=== PATIENT | male | born 1945 | race Hispanic/Latino ===

== ENCOUNTER → 2017-10-22 | Outpatient (CLI) | payer OTHER ==
[~2017-10-22] MED LIST: ASPIRIN EC81 MG PO; ATORVASTATIN CA10 MG PO; GLIMEPIRIDE1 MG PO; HYDROCODON-ACE1 EA11 PO; LANTUS100 UNITS/ SQ; LISINOPRIL5 MG PO; METFORMIN HCL500 MG PO; REGADENOSON 0.4 MG/5 ML SYR IV ONE
--- NOTE | 2017-10-22 13:32 | Cardiology Report ---
DATE OF STUDY: October 22, 2017 LEXISCAN STRESS TEST INDICATION: Chest pain. DESCRIPTION OF PROCEDURE: After informed consent, patient was brought to the stress lab. He was given 11 mCi of technetium 99 Myoview intravenously, and myocardial perfusion SPECT images were obtained in the horizontal long-axis, short-axis and vertical long-axis views. Subsequently, patient was 0.4 mg Lexiscan over 10 seconds. Patient was given 33 mCi of technetium 99 Myoview intravenously, and myocardial perfusion SPECT images were obtained in the horizontal long-axis, short-axis and vertical long-axis views. Gating images were also obtained. Patient tolerated the procedure without any complications. REPORT: Baseline EKG shows sinus rhythm at 69 beats per minute, normal axis, normal intervals, nonspecific ST-T changes. PARAMETERS 1. Resting heart rate is 67 beats per minute. 2. Maximum heart rate is 103 beats per minute. 3. Resting blood pressure is 135/94 mmHg. 4. Maximum blood pressure 148/107 mmHg. REASON FOR TERMINATION: Endpoint attained. INTERPRETATION 1. Negative for chest pain. 2. Negative for arrhythmias. 3. Patient became hypotensive after Lexiscan infusion. 4. No significant ST-T changes seen during Lexiscan infusion compared to baseline. 5. Analysis of SPECT images reveals uniform radioisotope uptake in all segments of the myocardium without any significant perfusion defects. CONCLUSIONS 1. No evidence of significant ischemia or infarction on this study. 2. Mild hypokinesis of the left ventricle is noted. 3. Overall ejection fraction is 44%. Job#: [id number] EV
== END ==
LOC: NM 08:04
DX: I25.810 Atherosclerosis of coronary artery bypass graft(s) without angina pectoris (principal)
CPT/HCPCS: 78452; 93017; A9502

== ENCOUNTER → 2019-04-23 | Outpatient (CLI) | payer MEDICARE ==
[~2019-04-23] MED LIST changes: +IOPAMIDOL 370 MG/ML 200 ML INFUS..BTL INJ ONE; -REGADENOSON 0.4 MG/5 ML SYR IV ONE; +SODIUM CHLORIDE 0.9% 100 ML 100 ML ONE
[2019-04-23 09:01] LABS: CREATININE, SERUM 1.18 mg/dL (0.72-1.25)
--- NOTE | 2019-04-24 14:49 | Diagnostic Imaging Report ---
History: Left-sided blockage Comparison studies:MRA neck 03/28/2014 Technique: Axial images were obtained from the thoracic inlet. 3-D reconstructions and maximum intensity projection reformats were performed. Coronal and sagittal images reconstructed from the axial data. Intravenous contrast: 100 cc of Omnipaque 300. Dose modulation, iterative reconstruction, and/or weight based adjustment of the mA/kV was utilized to reduce the radiation dose to as low as reasonably achievable. Findings: Percentage of stenosis will be based on the NASCET criteria. Aortic arch and major vessels: Patent. Atherosclerotic calcifications of the stenosis. Calcified and noncalcified atherosclerotic plaque of the proximal left subclavian artery results in 40-60% stenosis. Calcified and non-calcified plaque at the subclavian artery distal to the left vertebral artery takeoff results in more than 90% stenosis/near occlusion with distal reconstitution. Common carotid arteries: Patent. Noncalcified plaque at the distal right common carotid artery with less than 30% stenosis Noncalcified plaque at the proximal and distal left common carotid artery with less than 30% stenosis. Noncalcified plaque at the proximal left external carotid artery results in more than 90% stenosis. Right internal carotid artery: Patent. Diminutive cervical segment. Calcified plaque at the carotid siphon and ophthalmic segment with less than 30% stenosis. Left internal carotid artery: Patent. Calcified plaque at the bulb with less than 30% stenosis. Calcified plaque at the carotid siphon and ophthalmic segment with less than 30% stenosis. Right vertebral artery: Patent and dominant. Calcified plaque at the origin with 40-60% stenosis.. Left vertebral artery: Patent. Calcified plaque at the origin results in less than 30% stenosis. No dentition. 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 High-grade stenosis stenosis of the left external carotid artery with distal reconstitution. Other scattered atherosclerotic disease of the neck arteries without hemodynamically significant stenosis as described above. Signed by: DR Theodore Hurt M.D. on 04/24/2019 2:46 PM
== END ==
LOC: CT 08:14
PROVIDERS: ATTEND Internal Medicine Critical Care Medicine
DX: I65.21 Occlusion and stenosis of right carotid artery (principal); G45.8 Other transient cerebral ischemic attacks and related syndromes
CPT/HCPCS: 36415; 70498; 82565; 84520; Q9967

== ENCOUNTER → 2020-04-17 | Day surgery (SDC) | payer MEDICARE, OTHER ==
[2020-04-12 10:07] LABS: BASOPHILS % 0.4 % (0.0-1.0); EOSINOPHILS # (AUTO) 0.3 (0.0-0.4); EOSINOPHILS % 3.6 % (0.0-6.0); HEMATOCRIT 39.9 % (38.2-49.6); HEMOGLOBIN 12.5 g/dL (14.0-18.0); LYMPHOCYTES # (AUTO) 3.3 (1.0-3.2); LYMPHOCYTES % 34.2 % (18.0-39.1); MEAN CORPUSCULAR HEMOGLOBIN 28.2 pg (28-32); MEAN CORPUSCULAR HGB CONC 31.3 g/dL (31-35); MEAN CORPUSCULAR VOLUME 90.1 fL (81-99); MONOCYTES # (AUTO) 0.7 (0.2-0.8); MONOCYTES % 7.1 % (4.4-11.3); NEUTROPHILS # (AUTO) 5.2 (2.1-6.9); NEUTROPHILS % 54.4 % (38.7-80.0); PLATELET COUNT 277 x10e3/uL (140-360); RED BLOOD COUNT 4.43 x10e6/uL (4.3-5.7); RED CELL DISTRIBUTION WIDTH 14.6 % (11.7-14.4)
[2020-04-12 10:32] LABS: ALANINE AMINOTRANSFERASE 13 IU/L (0-55); ALBUMIN/GLOBULIN RATIO 1.1 (0.8-2.0); ALKALINE PHOSPHATASE 80 IU/L (40-150); BLOOD UREA NITROGEN 15 mg/dL (7-26); BUN/CREATININE RATIO 14 (6-25); CALCIUM 10.3 mg/dL (8.4-10.2); CARBON DIOXIDE 28 mmol/L (22-29); CHLORIDE 105 mmol/L (98-107); CHOL/HDL RATIO 3.4 (3.9-4.7); CHOLESTEROL 131 MD/DL (0-199); CREATININE, SERUM 1.08 mg/dL (0.72-1.25); EST GLOMERULAR FILTRATION RATE > 60 ML/MIN (60-); GLUCOSE 116 mg/dL (74-118); HDL CHOLESTEROL 39 MG/DL (40-60); LDL CHOLESTEROL 77 MG/DL (60-130); SODIUM 141 mmol/L (136-145); TRIGLYCERIDES 75 MG/DL (0-149)
--- NOTE | 2020-04-12 10:37 | Diagnostic Imaging Report ---
EXAMINATION: CHEST 2 VIEWS INDICATION: ^PRE-OP COMPARISON: None FINDINGS: TUBES and LINES: Sternal wires. LUNGS: Lungs are well inflated. Lungs are clear. There is no evidence of pneumonia or pulmonary edema. PLEURA: No pleural effusion or pneumothorax. HEART AND MEDIASTINUM: The cardiomediastinal silhouette is unremarkable. BONES AND SOFT TISSUES: No acute osseous lesion. Soft tissues are unremarkable. UPPER ABDOMEN: No free air under the diaphragm. IMPRESSION: No acute thoracic abnormality. Signed by: Dr. Hieu Landa M.D. on 04/12/2020 10:33 AM
[2020-04-12 10:54] LABS: INR 0.96; PARTIAL THROMBOPLASTIN TIME 28.1 seconds (23.8-35.5); PROTHROMBIN TIME 13.3 seconds (11.9-14.5)
[~2020-04-17] VITALS: Ht 165.1 cm; Wt 64.4 kg
[2020-04-17] VITALS (16 sets, daily range): BP systolic 144–171; BP diastolic 64–86
[~2020-04-17] MED LIST changes: +ASPIRIN 325 MG TAB ONE; +BIVALRIUDIN 250 MG/VIAL VIAL IV ONE; +CLOPIDOGREL BISULFATE 75 MG TAB ONE; +FENTANYL CITRATE/PF 100MCG/2 ML INJ ONE; +HEPARIN SOD (PORCINE) 1000 UNIT/ML 30ML ONE; +HEPARIN SOD/SOD CHLORIDE 2,000 ML ONE; +LIDOCAINE HCL 2% LOCAL 20 ML VIAL ONE; +MIDAZOLAM HCL 2 MG/2 ML VIAL ONE; +NITROGLYCERIN/D5W 200 MCG/ML 250 ML ONE; +NOVOLOG100 UNIT/1 SC; -SODIUM CHLORIDE 0.9% 100 ML 100 ML ONE; +SODIUM CHLORIDE 0.9% 1000ML 1,000 ML ONE; +SODIUM CHLORIDE 0.9% 50ML 50 ML ONE; +TRESIBA100 UNIT/1 SC
--- NOTE | 2020-04-17 09:47 | Operative Report ---
DATE OF PROCEDURE: 04/17/2020 SURGEON: Bashir Navarro MD PROCEDURE: 1. Intracoronary stent placement and the saphenous vein graft to the obtuse marginal branch of the circumflex artery. 2. Left heart catheterization with grafts. COMPLICATIONS: None. PREOPERATIVE DIAGNOSES: 1. Angina. 2. Coronary artery disease. POSTOPERATIVE DIAGNOSES: 1. Angina. 2. Coronary artery disease. ANESTHESIA: Conscious sedation. TECHNIQUE: The right groin was draped and prepped in the usual fashion. The area was anesthetized with lidocaine. Standard Seldinger technique was used to place a 6-[place] sheath into the right femoral artery without difficulty. A JL4 catheter was used to selectively engage the left coronary artery. A 3DRC catheter was used to selectively engage the right coronary artery and the saphenous vein graft to the right coronary artery. An internal mammary artery catheter was used to selectively engage the left internal mammary artery graft. A pigtail catheter was used to perform a left ventriculogram. Attention was then turned to the 95% stenosis immediately distal to the anastomosis of the saphenous vein graft to the obtuse marginal branch of the circumflex artery. The patient was bolused with Angiomax and started on an Angiomax drip. The patient was given 600 mg of Plavix. A 3DRC guide was used to selectively engage the saphenous vein graft to the obtuse marginal branch of the circumflex artery. The choice PT wire was used to cross the area of 95% stenosis of the anastomosis. The area was dilated with 2.5 x 12 mm balloon. A 2.5 mm x 12 mm stent was then deployed without complication. A Mynx device was used for closure. RESULTS: 1. The [place] left main trunk appeared to be occluded. 2. The [place] left anterior descending artery was occluded proximally. 3. The [place] AV circumflex artery was occluded proximally. 4. The right coronary artery was a large dominant vessel with about 30% stenosis at the ostium. 5. The saphenous vein graft to the obtuse marginal branch of the circumflex artery was widely patent. There was 95% stenosis immediately after the anastomosis of the saphenous vein graft to the obtuse marginal branch of the circumflex artery. 6. There was a sequential left internal mammary artery graft to the left anterior descending artery and diagonal artery, which was widely patent. 7. The left ventriculogram demonstrated moderate left ventricular dysfunction with an ejection fraction of 40%. CONCLUSION: Successful stent placement in the saphenous vein graft to the obtuse marginal branch of the circumflex artery. MD ELSA Owen/MODL /[id number]
== END | disposition home or self-care (01) ==
LOC: CATH LAB 06:09
PROVIDERS: ATTEND Internal Medicine Cardiovascular Disease
DX: I25.709 Atherosclerosis of coronary artery bypass graft(s), unspecified, with unspecified angina pectoris (principal); G45.8 Other transient cerebral ischemic attacks and related syndromes; I10 Essential (primary) hypertension; E11.9 Type 2 diabetes mellitus without complications; Z88.8 Allergy status to other drugs, medicaments and biological substances; Z91.041 Radiographic dye allergy status; Z01.810 Encounter for preprocedural cardiovascular examination; Z01.812 Encounter for preprocedural laboratory examination; Z01.818 Encounter for other preprocedural examination; Z11.59 Encounter for screening for other viral diseases; Z79.84 Long term (current) use of oral hypoglycemic drugs; Z79.02 Long term (current) use of antithrombotics/antiplatelets; Z79.82 Long term (current) use of aspirin; Z79.4 Long term (current) use of insulin; Z95.1 Presence of aortocoronary bypass graft; Z82.49 Family history of ischemic heart disease and other diseases of the circulatory system
CPT/HCPCS: 93459; C9604; 36415; 71046; 80053; 80061; 85025; 85610; 85730; 92928; 93005; 99152; 99153; C1725; C1760; C1769; C1874; J0583; J1644; J2001; J2250; J3010; J7030; Q9967; U0002

== ENCOUNTER 2021-11-02 09:55 | Inpatient (IN) | payer MEDICARE ==
[2021-10-30 11:12] LABS: BASOPHILS % 0.3 % (0.0-1.0); EOSINOPHILS # (AUTO) 0.2 (0.0-0.4); EOSINOPHILS % 3.4 % (0.0-6.0); HEMATOCRIT 36.3 % (38.2-49.6); HEMOGLOBIN 11.6 g/dL (14.0-18.0); LYMPHOCYTES # (AUTO) 2.6 (1.0-3.2); LYMPHOCYTES % 39.3 % (18.0-39.1); MEAN CORPUSCULAR HEMOGLOBIN 29.5 pg (28-32); MEAN CORPUSCULAR VOLUME 92.4 fL (81-99); MONOCYTES # (AUTO) 0.4 (0.2-0.8); MONOCYTES % 6.8 % (4.4-11.3); NEUTROPHILS # (AUTO) 3.3 (2.1-6.9); PLATELET COUNT 298 x10e3/uL (140-360); RED BLOOD COUNT 3.93 x10e6/uL (4.3-5.7); RED CELL DISTRIBUTION WIDTH 13.9 % (11.7-14.4)
[2021-10-30 11:32] LABS: INR 0.97; PROTHROMBIN TIME 13.8 seconds (11.9-14.5)
[2021-10-30 11:33] LABS: PARTIAL THROMBOPLASTIN TIME 29.9 seconds (23.8-35.5)
[2021-10-30 11:39] LABS: ANION GAP 12.5 mmol/L (8-16); CREATININE, SERUM 1.05 mg/dL (0.72-1.25); POTASSIUM 4.5 mmol/L (3.5-5.1)
[~2021-11-02] VITALS: Ht 165.1 cm; Wt 64.9 kg
[2021-11-02] VITALS (10 sets, daily range): BP systolic 116–163; BP diastolic 49–68
[~2021-11-02 09:55] MED LIST changes: -ASPIRIN 325 MG TAB ONE; -BIVALRIUDIN 250 MG/VIAL VIAL IV ONE; -CLOPIDOGREL BISULFATE 75 MG TAB ONE; -FENTANYL CITRATE/PF 100MCG/2 ML INJ ONE; +FEROSUL325 MG PO; +FLOMAX0.4 MG PO; -HEPARIN SOD (PORCINE) 1000 UNIT/ML 30ML ONE; +HEPARIN SOD/SOD CHLORIDE 1,000 ML ONE; -HEPARIN SOD/SOD CHLORIDE 2,000 ML ONE; -IOPAMIDOL 370 MG/ML 200 ML INFUS..BTL INJ ONE; -LIDOCAINE HCL 2% LOCAL 20 ML VIAL ONE; -MIDAZOLAM HCL 2 MG/2 ML VIAL ONE; +MIDODRINE HCL2.5 MG PO; -NITROGLYCERIN/D5W 200 MCG/ML 250 ML ONE; -SODIUM CHLORIDE 0.9% 1000ML 1,000 ML ONE; -SODIUM CHLORIDE 0.9% 50ML 50 ML ONE
[2021-11-02] MEDS ORDERED: DEXTROSE 5% 250ML 250 ML IV ONE (10:44)
[2021-11-02] MEDS ORDERED: PREVAGEN PO (11:13)
[2021-11-02] MEDS ORDERED: HEPARIN SOD (PORCINE) 1000 UNIT/ML 30ML ONE (12:33)
[2021-11-02] MEDS ORDERED: SODIUM CHLORIDE 0.9% 500ML 500 ML ONE (12:33)
[2021-11-02] MEDS ORDERED: LIDOCAINE HCL 1% 2 ML AMP ONE (12:33)
[2021-11-02] MEDS ORDERED: PROTAMINE SULFATE 10 MG/ML 5 ML VIAL ONE (12:33)
[2021-11-02] MEDS ORDERED: THROMBIN FOR SOLN 5,000 UNIT VIAL ONE (12:34)
[2021-11-02] MEDS ORDERED: MUPIROCIN 2% OINT 22 GM TUBE ONE (12:34)
[2021-11-02] MEDS ORDERED: SODIUM CHLORIDE 0.9% 50ML 50 ML ONE (12:38)
[2021-11-02] MEDS ORDERED: SEVOFLURANE INHAL SOLN 250 ML PEN BTL ONE (12:58)
[2021-11-02] MEDS ORDERED: ONDANSETRON HCL INJ 2MG/ML 2ML 2 MG/ML VIAL ONE ×2 (12:58→15:44)
[2021-11-02] MEDS ORDERED: ROCURONIUM BROMIDE 10 MG/ML 5ML VIAL IV ONE (12:58)
[2021-11-02] MEDS ORDERED: PHENYLEPHRINE HCL 1% 10 MG/ML VIAL ONE (12:58)
[2021-11-02] MEDS ORDERED: POVIDONE IODINE 0.05% 0.05 % ML PO ONE (12:58)
[2021-11-02] MEDS ORDERED: LIDOCAINE HCL 2% JELLY 5 ML TUBE ONE (12:58)
[2021-11-02] MEDS ORDERED: PROPOFOL IV EMULSION 10 MG/ML 20 ML VIAL ONE (12:58)
[2021-11-02] MEDS ORDERED: FENTANYL CITRATE/PF 100MCG/2 ML INJ ONE ×2 (13:04→15:32)
[2021-11-02] MEDS ORDERED: ACETAMINOPHEN 1000 MG/100 ML 100 ML IV ONE (14:38)
[2021-11-02 15:50] LABS: BASOPHILS % 0.2 % (0.0-1.0); EOSINOPHILS # (AUTO) 0.3 (0.0-0.4); EOSINOPHILS % 2.6 % (0.0-6.0); HEMATOCRIT 32.2 % (38.2-49.6); HEMOGLOBIN 10.5 g/dL (14.0-18.0); LYMPHOCYTES # (AUTO) 4.2 (1.0-3.2); MEAN CORPUSCULAR HEMOGLOBIN 29.4 pg (28-32); MEAN CORPUSCULAR HGB CONC 32.6 g/dL (31-35); MEAN CORPUSCULAR VOLUME 90.2 fL (81-99); MONOCYTES # (AUTO) 0.9 (0.2-0.8); MONOCYTES % 7.5 % (4.4-11.3); NEUTROPHILS # (AUTO) 6.6 (2.1-6.9); NEUTROPHILS % 54.4 % (38.7-80.0); PLATELET COUNT 289 x10e3/uL (140-360); RED BLOOD COUNT 3.57 x10e6/uL (4.3-5.7); RED CELL DISTRIBUTION WIDTH 14.1 % (11.7-14.4)
[2021-11-02 16:14] LABS: ALBUMIN 3.2 g/dL (3.5-5.0); ALBUMIN/GLOBULIN RATIO 1.1 (0.8-2.0); ANION GAP 9.9 mmol/L (8-16); CALCIUM 8.9 mg/dL (8.4-10.2); CREATININE, SERUM 0.86 mg/dL (0.72-1.25); POTASSIUM 3.9 mmol/L (3.5-5.1)
[2021-11-02] MEDS ORDERED: HYDROCODONE/APAP 5MG-325MG TAB PO PRN ×2 (17:30)
[2021-11-02] MEDS ORDERED: Morphine 2mg Syringe 2 MG/ML SYR IV PRN (17:30)
[2021-11-02] MEDS ORDERED: ONDANSETRON HCL 4 MG ORAL DISINTEGRATING TAB PO PRN (17:30)
[2021-11-02] MEDS ORDERED: Morphine 4mg Syringe 4 MG/ML INJ IV PRN (17:30)
[2021-11-02] MEDS ORDERED: DEXTROSE 50% SYRINGE 50 ML IV PRN (17:45)
[2021-11-02] MEDS ORDERED: LABETALOL HCL 5 MG/ML 20ML VIAL IV PRN (17:45)
[2021-11-02] MEDS: INSULIN REGULAR, HUMAN 100 UNIT/1 ML SQ SCH (18:00)
[2021-11-02] MEDS: SODIUM CHLORIDE 0.9% 1000ML 1,000 ML IV SCH (18:30)
[2021-11-02 19:26] LABS: BASOPHILS % 0.3 % (0.0-1.0); EOSINOPHILS % 0.3 % (0.0-6.0); HEMOGLOBIN 10.9 g/dL (14.0-18.0); LYMPHOCYTES # (AUTO) 1.5 (1.0-3.2); LYMPHOCYTES % 11.1 % (18.0-39.1); MEAN CORPUSCULAR HEMOGLOBIN 29.6 pg (28-32); MEAN CORPUSCULAR VOLUME 89.7 fL (81-99); MONOCYTES # (AUTO) 0.5 (0.2-0.8); MONOCYTES % 3.9 % (4.4-11.3); NEUTROPHILS # (AUTO) 11.3 (2.1-6.9); NEUTROPHILS % 84.3 % (38.7-80.0); PLATELET COUNT 287 x10e3/uL (140-360); RED BLOOD COUNT 3.68 x10e6/uL (4.3-5.7)
[2021-11-02 19:54] LABS: ANION GAP 12.4 mmol/L (8-16); CALCIUM 9.2 mg/dL (8.4-10.2); CREATININE, SERUM 0.85 mg/dL (0.72-1.25); POTASSIUM 4.4 mmol/L (3.5-5.1)
[2021-11-02] MEDS ORDERED: Cefazolin 1 GM in SODIUM CHLORIDE 0.9% 50ML 50 ML IV ONE (22:00)
[2021-11-03] VITALS (23 sets, daily range): BP systolic 112–172; BP diastolic 51–80
[2021-11-03] MEDS: SODIUM CHLORIDE 0.9% 1000ML 1,000 ML IV SCH (04:31)
[2021-11-03] MEDS: INSULIN REGULAR, HUMAN 100 UNIT/1 ML SQ SCH ×5 (06:00→23:56)
[2021-11-03 06:07] LABS: BASOPHILS % 0.4 % (0.0-1.0); EOSINOPHILS # (AUTO) 0.2 (0.0-0.4); EOSINOPHILS % 1.6 % (0.0-6.0); HEMATOCRIT 33.7 % (38.2-49.6); LYMPHOCYTES # (AUTO) 2.9 (1.0-3.2); MEAN CORPUSCULAR HEMOGLOBIN 29.4 pg (28-32); MEAN CORPUSCULAR HGB CONC 32.6 g/dL (31-35); MEAN CORPUSCULAR VOLUME 90.1 fL (81-99); MONOCYTES # (AUTO) 0.8 (0.2-0.8); MONOCYTES % 8.6 % (4.4-11.3); NEUTROPHILS # (AUTO) 5.7 (2.1-6.9); NEUTROPHILS % 59.1 % (38.7-80.0); PLATELET COUNT 322 x10e3/uL (140-360); RED BLOOD COUNT 3.74 x10e6/uL (4.3-5.7)
[2021-11-03 06:26] LABS: ALBUMIN 3.3 g/dL (3.5-5.0); ANION GAP 12.2 mmol/L (8-16); CREATININE, SERUM 0.99 mg/dL (0.72-1.25); POTASSIUM 4.2 mmol/L (3.5-5.1)
[2021-11-03] MEDS: ENOXAPARIN SOD INJ 40 MG/0.4 ML SYR SC SCH (08:31)
[2021-11-03] MEDS ORDERED: SODIUM CHLORIDE FLUSH 10 ML SYR INJ PRN (09:00)
[2021-11-03] MEDS ORDERED: DIPHENHYDRAMINE HCL INJ 50 MG/ML VIAL IV ONE (20:30)
[2021-11-04] VITALS (17 sets, daily range): BP systolic 80–154; BP diastolic 43–92
[2021-11-04] MEDS ORDERED: AMIODARONE HCL 150 MG/100 ML BAG IV ONE (03:45)
[2021-11-04] MEDS ORDERED: AMIODARONE 900MG 900 MG in Premix Bag 1 BAG IV SCH (03:45)
[2021-11-04] MEDS ORDERED: AMIODARONE HCL 100 ML IV ONE (03:53)
[2021-11-04] MEDS ORDERED: AMIODARONE 900MG 500 ML IV ONE (03:54)
[2021-11-04 05:25] LABS: BASOPHILS % 0.3 % (0.0-1.0); EOSINOPHILS # (AUTO) 0.3 (0.0-0.4); EOSINOPHILS % 2.3 % (0.0-6.0); LYMPHOCYTES # (AUTO) 2.1 (1.0-3.2); LYMPHOCYTES % 16.6 % (18.0-39.1); MEAN CORPUSCULAR HEMOGLOBIN 29.6 pg (28-32); MEAN CORPUSCULAR HGB CONC 33.3 g/dL (31-35); MEAN CORPUSCULAR VOLUME 88.8 fL (81-99); MONOCYTES # (AUTO) 1.2 (0.2-0.8); MONOCYTES % 9.6 % (4.4-11.3); NEUTROPHILS # (AUTO) 8.8 (2.1-6.9); NEUTROPHILS % 70.8 % (38.7-80.0); PLATELET COUNT 358 x10e3/uL (140-360); RED BLOOD COUNT 4.39 x10e6/uL (4.3-5.7); RED CELL DISTRIBUTION WIDTH 13.7 % (11.7-14.4)
[2021-11-04 05:36] LABS: ANION GAP 14.1 mmol/L (8-16); CALCIUM 10.2 mg/dL (8.4-10.2); CREATININE, SERUM 1.04 mg/dL (0.72-1.25); POTASSIUM 4.1 mmol/L (3.5-5.1)
[2021-11-04] MEDS: INSULIN REGULAR, HUMAN 100 UNIT/1 ML SQ SCH ×4 (06:00→23:57)
[2021-11-04] MEDS ORDERED: DIGOXIN INJ 0.25 MG/ML 2 ML AMP IV ONE (06:30)
[2021-11-04] MEDS: DIGOXIN INJ 0.25 MG/ML 2 ML AMP IV ONE ×2 (06:30→07:38)
[2021-11-04] MEDS ORDERED: DIGOXIN INJ 0.25 MG/ML 2 ML AMP ONE (06:41)
[2021-11-04] MEDS: ENOXAPARIN SOD INJ 40 MG/0.4 ML SYR SC SCH (08:46)
[2021-11-04] MEDS ORDERED: ENOXAPARIN SOD INJ 40 MG/0.4 ML SYR SC SCH (17:00)
[2021-11-04] MEDS: AMIODARONE HCL 200 MG TAB PO SCH (17:13)
[2021-11-04] MEDS: APIXABAN 5 MG TABLET PO SCH (21:30)
[2021-11-05] VITALS (22 sets, daily range): BP systolic 77–186; BP diastolic 57–86
[2021-11-05] MEDS ORDERED: AMIODARONE HCL 900 MG in DEXTROSE 5 % 500ML BOTTLE 482 ML IV SCH (08:00)
[2021-11-05] MEDS: INSULIN REGULAR, HUMAN 100 UNIT/1 ML SQ SCH ×4 (08:00→21:11)
[2021-11-05] MEDS: AMIODARONE HCL 200 MG TAB PO SCH (08:04)
[2021-11-05] MEDS: APIXABAN 5 MG TABLET PO SCH ×2 (08:05→21:07)
[2021-11-05] MEDS ORDERED: VASOPRESSIN 60 UNIT in DEXTROSE 5% 50ML 57 ML IV PRN ×4 (09:15)
[2021-11-06 04:57] LABS: BASOPHILS % 0.3 % (0.0-1.0); EOSINOPHILS # (AUTO) 0.5 (0.0-0.4); EOSINOPHILS % 4.1 % (0.0-6.0); HEMATOCRIT 34.6 % (38.2-49.6); HEMOGLOBIN 11.4 g/dL (14.0-18.0); LYMPHOCYTES # (AUTO) 3.1 (1.0-3.2); LYMPHOCYTES % 27.5 % (18.0-39.1); MEAN CORPUSCULAR HEMOGLOBIN 29.8 pg (28-32); MEAN CORPUSCULAR HGB CONC 32.9 g/dL (31-35); MEAN CORPUSCULAR VOLUME 90.3 fL (81-99); MONOCYTES # (AUTO) 1.1 (0.2-0.8); MONOCYTES % 9.5 % (4.4-11.3); NEUTROPHILS # (AUTO) 6.6 (2.1-6.9); NEUTROPHILS % 58.2 % (38.7-80.0); PLATELET COUNT 344 x10e3/uL (140-360); RED BLOOD COUNT 3.83 x10e6/uL (4.3-5.7); RED CELL DISTRIBUTION WIDTH 13.4 % (11.7-14.4)
[2021-11-06 05:22] LABS: ALBUMIN 3.2 g/dL (3.5-5.0); ALBUMIN/GLOBULIN RATIO 0.9 (0.8-2.0); CALCIUM 9.7 mg/dL (8.4-10.2); CREATININE, SERUM 1.39 mg/dL (0.72-1.25)
[2021-11-06 05:38] VITALS: BP 162/74
[2021-11-06] MEDS: INSULIN REGULAR, HUMAN 100 UNIT/1 ML SQ SCH ×3 (07:30→16:30)
[2021-11-06 08:00] VITALS: BP 135/69
[2021-11-06 08:01] VITALS: BP_SYST 135; BP_SYST 175; BP_DIAS 69; BP_DIAS 73
[2021-11-06] MEDS: APIXABAN 5 MG TABLET PO SCH (08:51)
[2021-11-06 12:12] VITALS: BP 151/91
[2021-11-06 16:00] VITALS: BP 149/70
== END 2021-11-06 18:19 | disposition home or self-care (01) | DRG 38 ==
LOC: OR 09:55 → PACU V 15:40 → ICU 16:52 → MED/SURG2 11-05 18:03
PROVIDERS: ADMIT Thoracic Surgery (Cardiothoracic Vascular Surgery); ATTEND Thoracic Surgery (Cardiothoracic Vascular Surgery)
PROC: 03CL0ZZ Extirpation of Matter from Left Internal Carotid Artery, Open Approach (ICD-10-PCS; 2021-11-02)
PROC: 03UL0JZ Supplement Left Internal Carotid Artery with Synthetic Substitute, Open Approach (ICD-10-PCS; 2021-11-02)
PROC: 03CJ0ZZ Extirpation of Matter from Left Common Carotid Artery, Open Approach (ICD-10-PCS; principal; 2021-11-02 12:30)
PROC: 02HV33Z Insertion of Infusion Device into Superior Vena Cava, Percutaneous Approach (ICD-10-PCS; 2021-11-05)
DX: I65.22 Occlusion and stenosis of left carotid artery (principal); I97.191 Other postprocedural cardiac functional disturbances following other surgery; I25.10 Atherosclerotic heart disease of native coronary artery without angina pectoris; Z95.1 Presence of aortocoronary bypass graft; E78.00 Pure hypercholesterolemia, unspecified; E11.9 Type 2 diabetes mellitus without complications; I73.9 Peripheral vascular disease, unspecified; G51.0 Bell's palsy; Z20.822 Contact with and (suspected) exposure to COVID-19
CPT/HCPCS: 36415; 36569; 70450; 71045; 71046; 80048; 80053; 82948; 85025; 85610; 85730; 86850; 86900; 86920; 88304; 88311; 93005; 93306; 94799; 97139; 99251; C1768; J0690; J1160; J1200; J1644; J1650; J1817; J2001; J2270; J2370; J2405; J2720; J3010; J7030; J7040; J7070; Q0162; U0002

== ENCOUNTER 2021-12-18 15:56 | Emergency (ER) | payer MEDICARE, OTHER ==
[~2021-12-18] VITALS: Ht 165.1 cm; Wt 64.9 kg
[~2021-12-18 15:56] MED LIST changes: -HEPARIN SOD/SOD CHLORIDE 1,000 ML ONE; +PREVAGEN PO
[2021-12-18 16:34] LABS: BASOPHILS % 0.5 % (0.0-1.0); EOSINOPHILS # (AUTO) 0.3 (0.0-0.4); EOSINOPHILS % 3.4 % (0.0-6.0); HEMATOCRIT 35.1 % (38.2-49.6); HEMOGLOBIN 11.2 g/dL (14.0-18.0); LYMPHOCYTES # (AUTO) 2.7 (1.0-3.2); LYMPHOCYTES % 33.2 % (18.0-39.1); MEAN CORPUSCULAR HEMOGLOBIN 29.7 pg (28-32); MEAN CORPUSCULAR HGB CONC 31.9 g/dL (31-35); MEAN CORPUSCULAR VOLUME 93.1 fL (81-99); MONOCYTES # (AUTO) 0.7 (0.2-0.8); MONOCYTES % 8.2 % (4.4-11.3); NEUTROPHILS # (AUTO) 4.5 (2.1-6.9); NEUTROPHILS % 54.6 % (38.7-80.0); PLATELET COUNT 337 x10e3/uL (140-360); RED BLOOD COUNT 3.77 x10e6/uL (4.3-5.7); RED CELL DISTRIBUTION WIDTH 14.4 % (11.7-14.4)
[2021-12-18 16:52] LABS: ANION GAP 13.2 mmol/L (8-16); CREATININE, SERUM 1.3 mg/dL (0.72-1.25); POTASSIUM 4.2 mmol/L (3.5-5.1)
[2021-12-18 18:07] VITALS: BP 164/78
== END 2021-12-18 18:09 | disposition home or self-care (01) ==
LOC: ER 16:23
DX: R51.9 Headache, unspecified (principal); I10 Essential (primary) hypertension; E11.65 Type 2 diabetes mellitus with hyperglycemia; I25.10 Atherosclerotic heart disease of native coronary artery without angina pectoris; K21.9 Gastro-esophageal reflux disease without esophagitis; E78.00 Pure hypercholesterolemia, unspecified; I25.2 Old myocardial infarction; Z95.1 Presence of aortocoronary bypass graft
CPT/HCPCS: 36415; 71045; 80048; 84484; 85025; 93005; 99284